=== PATIENT | female | born 1965 | race African-American/Black ===

== ENCOUNTER 2016-07-14 18:43 | Emergency (ER) | payer MEDICARE, MEDICAID ==
[~2016-07-14] VITALS: Ht 167.6 cm; Wt 144.0 kg
[~2016-07-14 18:43] MED LIST: ALBU8.5H5 IH; AMOX50TA PO; ARIP5TAB; BECL7.3A5 IH; DIVA500T31 PO; DOCU-118 PO; IPRA42SP NS; LEVO200T8; LEVO25TA7; LISI-114 PO; LORA10TA7; MELO-32; METO-107 PO; TRIA1TAB10; [UNRECOGNIZED DRUG - CODE] IM
[2016-07-14 18:45] VITALS: TEMP 98.1; Ht 167.6 cm; Wt 144.0 kg
--- NOTE | 2016-07-14 19:10 | ERPDOC ---
Departure Disposition Decision Date: July 14, 2016 Disposition Decision Time: 20:21 Disposition: 01 DISCHARGED HOME, SELF-CARE Impression Impression Impression: Primary Impression: Dizziness Severity: Moderate Condition: Stable Seen By: Mid-level only Referrals: HEMANT VENEGAS (Family) Patient Instructions: Dizziness (ED) Problems/Meds/Labs Reviewed?: Yes Medications reviewed and manag: Yes Additional Instructions: Your labs today look good. Your chest xray however does look like your heart is significantly enlarged. I do want you to monitor your sodium intake at home and try to reduce the amount of sodium you eat. I do also want you to make an appointment to follow up with your primary care provider in the next 1-2 days for reevaluation. Return to Er however with any increased shortness of breath, chest pain, or any other concerns. Follow up care ordered?: Yes Mental Status: Alert HPI - General Medical General Chief Complaint: Hypertension Stated Complaint: H BP Time Seen by Provider: 18:52 Source: patient Exam Limitations: no limitations HPI - General Medical Initial Comments She lives at [facility] here in [facility] [place] she told a staff member that she was dizzy. The staff member did take her blood pressure and noted that it was a little elevated diastolically at 97. She repeated the blood pressure and then had sit up and retook it and it was 180/100. Patient also has been c/o left shoulder pain today. These things concerned the staff and so she was brought to Er for evaluation. She does wear O2 at home at 4L per [place] for COPD but does not have any SOA or specific chest pain. Has not had any vomiting but did have an episode of diarrhea this morning. Denies any fever or chills. Occurred At: home Onset: Gradual Duration: 1-3 hrs Severity: moderate Associated Symptoms: other (dizziness and left arm pain), DENIES: chest pain, cough, diaphoresis, fever/chills, headaches, loss of appetite, malaise, nausea/ vomiting, rash, seizure, shortness of breath, syncope, weakness Hx of Similar Symptoms: No Allergies: Coded Allergies: Hydrocodone (Verified Allergy, Mild, ITCHING, 01/27/08) Sulfa (Sulfonamide Antibiotics) (Verified Allergy, Mild, RASH, 01/27/08) citalopram (Verified Allergy, Unknown, RASH, 08/24/12) Past History Vaccines Hx Influenza Vaccination: Yes (Fall 2011) Hx Pneumococcal Vaccination: Yes (02-23-11) Review of Systems Constitutional Constitutional: dizziness, DENIES: chills, fatigue, fever, weakness Eyes Vision: DENIES: blurring, double vision ENMT Ears: DENIES: drainage, pain Sinuses: DENIES: congestion, rhinorrhea Mouth/Throat: DENIES: painful swallowing, scratchy throat, sore throat Cardiovascular Cardiac: DENIES: chest pain, dyspnea on exertion, orthopnea Rhythm/Rate: DENIES: irregular beat, palpitations Vascular: DENIES: pedal edema, unilateral swelling Pulmonary Respiratory: DENIES: cough, dyspnea, sputum, tachypnea GI Upper Abdomen: DENIES: nausea, pain, vomiting Lower Abdomen: diarrhea, DENIES: constipation, pain Integumentary Skin: DENIES: rash Neurological General: DENIES: headache, numbness, tingling, weakness Physical Exam General General Nourishment: well nourished, well developed, appears stated age, no acute distress, adult General Body Habitus: well groomed Vitals and Pain First Documented Vital Signs Date Time Temp Pulse Resp B/P Pulse Ox O2 Delivery O2 Flow Rate FiO2 07/14/16 18:45 98.1 99 22 135/76 97 Nasal Cannula 4.00 Weight: Kilograms: Height (feet): Height (inches): Triage Pain Scale: RN VS reviewed by Provider: Yes Normal Exams: Neck: Full range of motion, without adenopathy, JVD, bruits or thyromegaly Chest/Resp: Clear all gtz, with good airflow, and symmetry bilaterally CV: Regular rate and rhythm, without murmur or gallop, Pulses 2+ all extremities, capillary refill, <2 seconds all ext., no pedal edema noted Abdomen: Bowel sounds positive, soft, non-tender, non-distended, no hepatosplenomegaly, masses or bruits noted Lymphatic: No lymphadenopathy, or lymphedema noted Integumentary: No rashes, hives, or bruising noted Neurologic: Patient is alert, and oriented, cranial nerves, motor/sensory/ cerebellar, exams w/o gross deficits, to observation Psychiatric: Patient exhibits, appropriate attention, emotion and affect Differential Diagnoses Considering: Acute VT, Hypo/Hyperglycemia, Hypo/Hyperkalemia, Hypo/ Hypernatremia, Metabolic Progress Results/Orders Orders Procedure Category Date Status Time EKG EKG 07/14/16 Logged Troponin I W LAB 07/14/16 Complete Hemolysis Index Chest, Pa & Lateral RAD 07/14/16 Taken Cbc W/Auto LAB 07/14/16 Complete Diff-Reflex Manual Bmp - Basic Metabolic LAB 07/14/16 Complete Panel Oxygen, Continuous RT 07/14/16 Logged Manage Oxygen VIN 07/14/16 In Process Administration 19:42 Lab Results Laboratory Tests Test 07/14/16 19:31 White Blood Count 8.7T/MM3 Red Blood Count 4.08M/MM3 Hemoglobin 12.6GM/DL Hematocrit 40.0% Mean Corpuscular Volume 98.0UM3 Mean Corpuscular Hemoglobin 30.9UUG Mean Corpuscular Hemoglobin Concent 31.5GM/DL RDW Standard Deviation 48.3FL Platelet Count 259T/MM3 Mean Platelet Volume 9.9UM3 Immature Granulocyte % (Auto) 0.3% Neutrophils (%) (Auto) 61.1% Lymphocytes (%) (Auto) 28.6% Monocytes (%) (Auto) 7.2% Eosinophils (%) (Auto) 2.5% Basophils (%) (Auto) 0.3% Absolute Immature Granulocyte (auto 0.03T/MM3 Absolute Neutrophils (auto) 5.3T/MM3 Absolute Lymphocytes (auto) 2.5T/MM3 Absolute Monocytes (auto) 0.6T/MM3 Absolute Eosinophils (auto) 0.2T/MM3 Absolute Basophils (auto) 0.0T/MM3 Turbidity < 20 Sodium Level 139MEQ/L Potassium Level 4.5MEQ/L Chloride Level 95MEQ/L Carbon Dioxide Level 33MEQ/L Anion Gap 11MEQ/L Blood Urea Nitrogen 17.0MG/DL Creatinine 0.9MG/DL Glomerular Filtration Rate Calc 66 BUN/Creatinine Ratio 19RATIO Glucose Level 95MG/DL Calculated Osmolality 270MOSM/KG Calcium Level 9.2MG/DL Icterus Index < 2 Troponin I < 0.012ng/ml Chemistry Specimen Hemolysis < 15 Progress Progress Her CBC, BMP, and troponin today are normal. Chest xray does show a severely enlarged heart which is bigger than previous xray from 2013. I did reevaluate patient and no crackles heard in exam however she does not have great inspiratory effort. No pitting edema appreciated. She has had some weight gain over the last several months per [facility] staff. She is in no respiratory distress and is speaking in complete sentences. Is maintaining her sats at 95% on her usual 4L per [place]. Did discuss the xray with patient and advised that she follow up with her PCP this week for further work up of her enlarged heart on xray. Xray Xray : Reason for Exam: dizziness Xray: CXR PA/Lat Interpretation: Abnormal (enlarged heart-severely) PRAVEEN MILLER APRN July 14, 2016 19:10
[2016-07-14 19:46] LABS: BASOPHILS % (AUTO) 0.3 % (0-2); EOSINOPHILS # (AUTO) 0.2 T/MM3 (0-0.5); EOSINOPHILS % (AUTO) 2.5 % (0-4); HGB - HEMOGLOBIN 12.6 GM/DL (12-16); IMMATURE GRANULOCYTE # (AUTO) 0.03 T/MM3 (0.00-0.03); IMMATURE GRANULOCYTE % (AUTO) 0.3 % (0.0-0.5); LYMPHOCYTES # (AUTO) 2.5 T/MM3 (1-4.8); LYMPHOCYTES % (AUTO) 28.6 % (23-45); MEAN CORPUSCULAR HGB 30.9 UUG (26-34); MEAN CORPUSCULAR HGB CONC(MCHC 31.5 GM/DL (31-37); MEAN PLATELET VOLUME 9.9 UM3 (9.4-12.4); MONOCYTES # (AUTO) 0.6 T/MM3 (0-0.8); MONOCYTES % (AUTO) 7.2 % (0-9.0); NEUTROPHILS #(AUTO)-ABSOLUTE 5.3 T/MM3 (1.8-7.7); NEUTROPHILS % (AUTO) 61.1 % (33-66); RED BLOOD COUNT 4.08 M/MM3 (4.00-5.20); WBC - WHITE BLOOD COUNT 8.7 T/MM3 (4.5-11.0)
[2016-07-14 19:50] LABS: ANION GAP 11 MEQ/L (5-15); BUN/CREATININE RATIO 19 RATIO (6-26); CALCIUM 9.2 MG/DL (8.4-10.2); CHLORIDE 95 MEQ/L (98-107); CO2 - CARBON DIOXIDE 33 MEQ/L (22-30); CREATININE 0.9 MG/DL (0.7-1.2); GLOMERULAR FILTRATION RATE 66; GLUCOSE 95 MG/DL (65-110); POTASSIUM 4.5 MEQ/L (3.6-5); SODIUM 139 MEQ/L (134-144)
[2016-07-14] MEDS ORDERED: CETI-269 PO (19:54)
[2016-07-14] MEDS ORDERED: ARIP15TA7 PO (19:54)
[2016-07-14] MEDS ORDERED: ATOR20TA59 PO (19:54)
[2016-07-14] MEDS ORDERED: LORA1TAB3 PO (19:54)
[2016-07-14] MEDS ORDERED: HYDR25TA PO (19:54)
[2016-07-14] MEDS ORDERED: LISI10TA7 PO (19:54)
[2016-07-14] MEDS ORDERED: ACET-2930 PO (19:54)
[2016-07-14] MEDS ORDERED: POLY255P2 PO (19:54)
[2016-07-14] MEDS ORDERED: DIPH25CA84 PO (19:54)
[2016-07-14] MEDS ORDERED: BUSP10TA3 PO (19:54)
[2016-07-14] MEDS ORDERED: ALBU0.63 AEROSOL (19:54)
[2016-07-14] MEDS ORDERED: GLUC-251 PO (19:54)
[2016-07-14] MEDS ORDERED: METO-277 PO (19:54)
[2016-07-14] MEDS ORDERED: FLUT16SP NAS (19:54)
[2016-07-14] MEDS ORDERED: IPRA4AER PO (19:54)
[2016-07-14] MEDS ORDERED: MONT10TA25 PO (19:54)
--- NOTE | 2016-07-14 20:10 | NUR ---
NURSING PROGRESS NOTE: PATIENT UP TO COMMODE TO VOID, VOIDED OVER 500ML OF CLEAR STRAW COLORED URINE WITHOUT ISSUES. ASSISSTED PATIENT GET DRESSED AND READY FOR DISCHARGE.
[2016-07-14 20:25] VITALS: BP 128/70; PULSE 96; RESP 22; O2SAT 96
--- NOTE | 2016-07-14 20:30 | NUR ---
DISCHARGE NOTE: ESCORTED PATIENT TO CAR VIA W/C. PATIENT ABLE TO GET INTO CAR WITH MINIMAL ASSISTANCE.
--- NOTE | 2016-07-15 08:06 | DI ---
INDICATION: ITS.REASON: dizziness, chest pain PROCEDURE: CHEST 2-VIEWS UPRIGHT (PA \T\ LAT) Encounter: Initial COMPARISON: August 26, 2012 FINDINGS: Evaluation is limited due to the portable technique and patient body habitus. This severely limits evaluation of the lung gtz. There appears to be groundglass opacities in both lung gtz. No obvious pneumothorax or large pleural effusion. Cardiac silhouette is severely enlarged. Mediastinal contours are widened. Pulmonary vascularity cannot be evaluated. Impression: Limited exam with findings suggesting pulmonary edema. Enlargement of the cardiac silhouette could be due to cardiomegaly or pericardial effusion. .
== END 2016-07-14 20:30 | disposition home or self-care (01) ==
LOC: ED 18:43
DX: I10 Essential (primary) hypertension (principal); R42 Dizziness and giddiness; M25.512 Pain in left shoulder; I51.7 Cardiomegaly
CPT/HCPCS: 36415; 80048; 84484; 85025; 93005